=== PATIENT | female | born 1960 | race African-American/Black ===

== ENCOUNTER 2020-10-12 16:45 | Emergency (ER) | payer OTHER ==
[~2020-10-12] VITALS: Ht 170.2 cm; Wt 97.1 kg
[2020-10-12 21:15] VITALS: BP 137/84
[2020-10-12] MEDS ORDERED: LATUDA20 MG PO (21:18)
[2020-10-12] MEDS ORDERED: TEMAZEPAM30 MG ORAL (21:18)
[2020-10-12] MEDS ORDERED: BUPROPION XL300 MG ORAL (21:18)
--- NOTE | 2020-10-12 21:32 | Emergency Room Report ---
History of Present Illness General Chief Complaint: Upper Extremity Injury Source: Patient Present Illness HPI Disclaimer: Please note that this report is being documented using DRAGON technology. This can lead to erroneous entry secondary to incorrect interpretation by the dictating instrument. HPI: 60-year-old female presents for evaluation of left elbow pain. Reports pain with flexion over the past few days. Pain does not radiate. No swelling or rash noted. Took Tylenol once for it. Denies injury. Denies numbness or tingling. Has been picking up her mom a lot over the past week. Denies pain in the elbow or shoulder or other regions. No other complaints at this time. 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 PSH: Reviewed Allergies: Reviewed Social Hx: Reviewed Allergies: Coded Allergies: No Known Allergies (Unverified , 10/12/20) COVID-19 Screening Contact w/high risk pt: No Experienced COVID-19 symptoms?: No COVID-19 Testing performed [employer]NO[employer]ICIAN: No Nursing Documentation-PMH Past Medical History: No History, Except For Hx Gastrointestinal Problems: Yes - GERD History Of Psychiatric Problem: Yes Review of Systems All Other Systems: negative except mentioned in HPI Physical Exam Vital Signs Date Time Temp Pulse Resp B/P (MAP) Pulse Ox O2 Delivery O2 Flow Rate FiO2 10/12/20 21:13 98.1 70 18 137/84 (101) 97 Room Air General: Awake and alert, no acute distress HEENT: NC/AT. EOMI. Resp: Normal work of breathing Skin: Intact. No abrasions, laceration or rash over the exposed skin MSK: Normal tone and bulk. Moving all extremities. No obvious deformity. Full range of motion left elbow. No edema. No erythema. No warmth. No point tenderness. Joint stable. Neuro: Awake and alert. Mentating appropriately Medical Decision Making Diagnostic Impression: Primary Impression: Elbow pain ER Course [id number] female presents for evaluation of 2 days atraumatic left elbow pain. No bony injury identified. No significant soft tissue swelling to suggest infection. Likely overuse injury. Will start on Motrin and patient will follow up with PMD as needed for referral to orthopedic surgery. Instructed to return new or worsening symptoms. She understands and agrees with the treatment plan. Other X-Ray Diagnostic Results Other X-Ray Diagnostic Results : X-Ray ordered: Left elbow # of Views/Limited Vs Complete: Complete Indication: Pain EP Interpretation: Yes Interpretation: no dislocation, no soft tissue swelling, no fractures Impression: No acute disease Electronically Signed by: Electronically signed by Dr. Jose Gordon MD Last Vital Signs Date Time Temp Pulse Resp B/P (MAP) Pulse Ox O2 Delivery O2 Flow Rate FiO2 10/12/20 21:13 98.1 70 18 137/84 (101) 97 Room Air Disposition: HOME, SELF-CARE Condition: Stable Scripts Ibuprofen* (MOTRIN*) 600 Mg Tablet 600 MG ORAL Q6H PRN for For Pain, #30 TAB 0 Refills Prov: Jose Gordon MD 10/12/20 Jose Gordon MD Oct 12, 2020 21:32
[2020-10-12] MEDS ORDERED: IBUPROFEN600 M1 ORAL (22:12)
--- NOTE | 2020-10-12 22:13 | Diagnostic Imaging Report ---
EXAM: XR Left Elbow Complete, 3 or More Views CLINICAL HISTORY: PAIN TECHNIQUE: Frontal, lateral and oblique views of the left elbow. COMPARISON: No relevant prior studies available. FINDINGS: Bones/joints: No acute fracture or dislocation. Soft tissues: No significant abnormality. IMPRESSION: No acute fracture or dislocation.
== END 2020-10-12 22:15 | disposition home or self-care (01) ==
LOC: EMR 21:32
DX: M25.522 Pain in left elbow (principal); K21.9 Gastro-esophageal reflux disease without esophagitis
CPT/HCPCS: 73080; Z7502; 99283